=== PATIENT | female | born 1950 | race African-American/Black ===

== ENCOUNTER 2018-09-22 12:03 | Emergency (ER) | payer MEDICAID, OTHER ==
[~2018-09-22] VITALS: Ht 154.9 cm; Wt 122.8 kg
[~2018-09-22 12:03] MED LIST: ASPI-1158 MT; DOCU-138 PO; LORA10CA PO; LOSA1TAB40 PO; OMEP40CA34 PO; TRAM50TA3 PO
[2018-09-22] MEDS ORDERED: KETOROLAC 30MG/ML VIAL IM STA (17:45)
[2018-09-22 18:44] LABS: BASOPHILS % 1.3 % (0.0-2.0); CHLORIDE 109 mEq/L (98-107); HEMATOCRIT. 37.2 % (36.0-48.0); HEMOGLOBIN. 12.3 g/dL (12.0-16.0); LYMPHOCYTES % 46.2 % (20.0-50.0); MEAN CORPUSCULAR HEMOGLOBIN 32.2 pg (28.0-32.0); MEAN CORPUSCULAR VOLUME 97.1 fL (81.0-99.0); MEAN PLATELET VOLUME 8.9 fl (7.4-10.4); MONOCYTES % 8.7 % (2.0-8.0); NEUTROPHILS % 42.8 % (40.0-76.0); PLATELET 184 x1000/uL (130-400); RED BLOOD CELL COUNT 3.84 mill/uL (4.2-5.4); RED CELL DISTRIBUTION WIDTH 13.7 % (11.6-14.6)
[2018-09-22 19:46] LABS: CLARITY URINE CLEAR (CLEAR); COLOR URINE YELLOW (YELLOW); KETONES URINE NEGATIVE (NEGATIVE); LEUKOCYTE ESTERASE URINE NEGATIVE (NEGATIVE); NITRITE URINE NEGATIVE (NEGATIVE); OCCULT BLOOD URINE NEGATIVE (NEGATIVE); PROTEIN URINE NEGATIVE (NEGATIVE); SPECIFIC GRAVITY URINE 1.017 (1.005-1.030); UROBILINOGEN URINE 0.2 E.U./dL (0.2-1.0)
[2018-09-22 22:50] VITALS: BP 144/82
== END 2018-09-22 22:51 | disposition home or self-care (01) ==
LOC: ER 12:03
DX: M54.5 Low back pain (principal); R60.0 Localized edema; R35.0 Frequency of micturition; R39.15 Urgency of urination; I10 Essential (primary) hypertension
CPT/HCPCS: 36415; 71045; 80053; 81003; 83880; 84484; 85025; 93005; 93970; 96372; 99284; J1885

== ENCOUNTER 2018-11-17 08:49 | Emergency (ER) | payer OTHER ==
[~2018-11-17] VITALS: Ht 154.9 cm; Wt 124.0 kg
[2018-11-17 09:41] LABS: BASOPHILS % 0.4 % (0.0-2.0); EOSINOPHILS % 1.6 % (0.0-5.0); HEMATOCRIT. 34.7 % (36.0-48.0); HEMOGLOBIN. 11.8 g/dL (12.0-16.0); LYMPHOCYTES % 47.5 % (20.0-50.0); MEAN CORPUSCULAR HEMOGLOBIN 32.9 pg (28.0-32.0); MEAN PLATELET VOLUME 9.1 fl (7.4-10.4); MONOCYTES % 8.5 % (2.0-8.0); PLATELET 161 x1000/uL (130-400); RED BLOOD CELL COUNT 3.57 mill/uL (4.2-5.4); RED CELL DISTRIBUTION WIDTH 13.8 % (11.6-14.6)
[2018-11-17 09:47] LABS: CHLORIDE 110 mEq/L (98-107)
[2018-11-17 09:48] LABS: PROTHROMBIN TIME 10.4 sec (9.6-11.0)
[2018-11-17 10:40] VITALS: BP 125/64
== END 2018-11-17 10:57 | disposition home or self-care (01) ==
LOC: ER 08:49
DX: K92.2 Gastrointestinal hemorrhage, unspecified (principal); I25.10 Atherosclerotic heart disease of native coronary artery without angina pectoris; I10 Essential (primary) hypertension; Z91.041 Radiographic dye allergy status; Z79.82 Long term (current) use of aspirin; Z98.890 Other specified postprocedural states
CPT/HCPCS: 36415; 80053; 85025; 85610; 99283; Z7610

== ENCOUNTER 2019-05-04 10:20 | Emergency (ER) | payer OTHER ==
[~2019-05-04] VITALS: Ht 154.9 cm; Wt 126.0 kg
[2019-05-04 13:53] VITALS: BP 135/93
[2019-05-04] MEDS ORDERED: ACETAMINOPHEN 325MG TABLET PO STA (15:23)
[2019-05-04 16:49] LABS: BASOPHILS % 0.8 % (0.0-2.0); EOSINOPHILS % 1.1 % (0.0-5.0); HEMATOCRIT. 37.3 % (36.0-48.0); HEMOGLOBIN. 12.6 g/dL (12.0-16.0); LYMPHOCYTES % 47.4 % (20.0-50.0); MEAN CORPUSCULAR HEMOGLOBIN 33.1 pg (28.0-32.0); MEAN PLATELET VOLUME 9.4 fl (7.4-10.4); MONOCYTES % 7.3 % (2.0-8.0); NEUTROPHILS % 43.4 % (40.0-76.0); PLATELET 176 x1000/uL (130-400); RED CELL DISTRIBUTION WIDTH 13.8 % (11.6-14.6)
[2019-05-04 16:54] LABS: CHLORIDE 107 mEq/L (98-107)
== END 2019-05-04 22:52 | disposition left against medical advice (07) ==
LOC: ER 10:20
DX: R10.13 Epigastric pain (principal); Z87.19 Personal history of other diseases of the digestive system
CPT/HCPCS: 36415; 80053; 85025; 99283

== ENCOUNTER 2019-06-13 10:26 | Emergency (ER) | payer MEDICAID, OTHER ==
[~2019-06-13] VITALS: Ht 154.9 cm; Wt 122.7 kg
[~2019-06-13 10:26] MED LIST changes: +OMEP40CA12 PO; -OMEP40CA34 PO
[2019-06-13 13:31] LABS: CLARITY URINE CLOUDY (CLEAR); COLOR URINE DARK YELLOW (YELLOW); KETONES URINE 1+ (NEGATIVE); LEUKOCYTE ESTERASE URINE 1+ (NEGATIVE); NITRITE URINE NEGATIVE (NEGATIVE); OCCULT BLOOD URINE NEGATIVE (NEGATIVE); PROTEIN URINE 1+ (NEGATIVE); SPECIFIC GRAVITY URINE 1.032 (1.005-1.030)
[2019-06-13 14:02] LABS: BASOPHILS % 0.4 % (0.0-2.0); EOSINOPHILS % 0.5 % (0.0-5.0); HEMATOCRIT. 39.5 % (36.0-48.0); LYMPHOCYTES % 35.8 % (20.0-50.0); MEAN CORPUSCULAR HEMOGLOBIN 32.7 pg (28.0-32.0); MEAN CORPUSCULAR VOLUME 99.4 fL (81.0-99.0); MEAN PLATELET VOLUME 9.1 fl (7.4-10.4); MONOCYTES % 7.6 % (2.0-8.0); NEUTROPHILS % 55.7 % (40.0-76.0); PLATELET 179 x1000/uL (130-400); RED BLOOD CELL COUNT 3.97 mill/uL (4.2-5.4); RED CELL DISTRIBUTION WIDTH 13.5 % (11.6-14.6)
[2019-06-13 14:08] LABS: CHLORIDE 107 mEq/L (98-107)
[2019-06-13 14:12] LABS: PROTHROMBIN TIME 10.7 sec (9.6-11.0)
[2019-06-13] MEDS ORDERED: LOPERAMIDE HCL 2MG CAPSULE PO ONE (15:45)
[2019-06-13] MEDS ORDERED: ONDANSETRON HCL 4MG TABLET PO ONE (15:45)
[2019-06-13 16:39] VITALS: BP 155/91
== END 2019-06-13 16:40 | disposition home or self-care (01) ==
LOC: ER 10:26
DX: N39.0 Urinary tract infection, site not specified (principal); I10 Essential (primary) hypertension; I25.10 Atherosclerotic heart disease of native coronary artery without angina pectoris; Z88.8 Allergy status to other drugs, medicaments and biological substances; Z79.82 Long term (current) use of aspirin
CPT/HCPCS: 36415; 80053; 81003; 83690; 85025; 85610; 99283; Q0162

== ENCOUNTER 2019-10-07 11:28 | Emergency (ER) | payer MEDICAID, OTHER ==
[~2019-10-07] VITALS: Ht 154.9 cm; Wt 122.0 kg
[2019-10-07] MEDS ORDERED: HYDR-4134 PO (11:43)
[2019-10-07] MEDS ORDERED: FAMOTIDINE 20MG TABLET PO ONE (12:15)
[2019-10-07] MEDS ORDERED: DIPHENHYDRAMINE 25MG CAPSULE PO ONE (12:15)
[2019-10-07] MEDS ORDERED: DEXAMETHASONE 4MG TABLET PO ONE (12:15)
[2019-10-07 15:17] VITALS: BP 134/81
== END 2019-10-07 16:00 | disposition home or self-care (01) ==
LOC: ER 11:28
DX: R07.0 Pain in throat (principal); I10 Essential (primary) hypertension; Z91.041 Radiographic dye allergy status; Z79.82 Long term (current) use of aspirin
CPT/HCPCS: 87070; 99284; J8540; Q0163

== ENCOUNTER 2020-03-10 07:27 | Emergency (ER) | payer MEDICARE, MEDICAID ==
[~2020-03-10] VITALS: Ht 154.9 cm; Wt 129.0 kg
[~2020-03-10 07:27] MED LIST changes: +HYDR-4134 PO
[2020-03-10] MEDS ORDERED: ONDANSETRON HCL 4MG/2ML INJ IV STA (07:50)
[2020-03-10] MEDS ORDERED: KETOROLAC 30MG/ML VIAL IV STA (07:50)
[2020-03-10] MEDS ORDERED: SODIUM CHLORIDE 0.9% 1,000 ML IV ONE (08:00)
[2020-03-10] MEDS ORDERED: HYDRALAZINE HCL 50MG TABLET PO ONE (08:00)
[2020-03-10 08:13] LABS: BASOPHILS % 1.1 % (0.0-2.0); EOSINOPHILS % 0.7 % (0.0-5.0); HEMATOCRIT. 36.9 % (36.0-48.0); HEMOGLOBIN. 12.3 g/dL (12.0-16.0); LYMPHOCYTES % 33.3 % (20.0-50.0); MEAN CORPUSCULAR HEMOGLOBIN 32.4 pg (28.0-32.0); MEAN CORPUSCULAR VOLUME 97.3 fL (81.0-99.0); MEAN PLATELET VOLUME 9.7 fl (7.4-10.4); MONOCYTES % 9.3 % (2.0-8.0); NEUTROPHILS % 55.6 % (40.0-76.0); PLATELET 193 x1000/uL (130-400); RED CELL DISTRIBUTION WIDTH 13.6 % (11.6-14.6)
[2020-03-10 08:22] LABS: CHLORIDE 108 mEq/L (98-107)
[2020-03-10 08:35] LABS: CLARITY URINE CLEAR (CLEAR); COLOR URINE DARK YELLOW (YELLOW); KETONES URINE NEGATIVE (NEGATIVE); NITRITE URINE NEGATIVE (NEGATIVE); OCCULT BLOOD URINE NEGATIVE (NEGATIVE); PH URINE >=9.0 (4.5-8.0); PROTEIN URINE TRACE (NEGATIVE); SPECIFIC GRAVITY URINE 1.022 (1.005-1.030)
[2020-03-10 08:36] LABS: LEUKOCYTE ESTERASE URINE TRACE (NEGATIVE)
[2020-03-10 09:45] VITALS: BP 157/78
== END 2020-03-10 09:45 | disposition home or self-care (01) ==
LOC: ER 07:27
DX: R19.7 Diarrhea, unspecified (principal); I25.10 Atherosclerotic heart disease of native coronary artery without angina pectoris; I10 Essential (primary) hypertension; Z79.82 Long term (current) use of aspirin; Z91.041 Radiographic dye allergy status
CPT/HCPCS: 36415; 80053; 81003; 83690; 85025; 85610; 93005; 96361; 96374; 96375; 99285; J1885; J2405; J7030

== ENCOUNTER 2020-07-02 14:55 | Inpatient (IN) | payer MEDICARE, MEDICAID ==
[~2020-07-02] VITALS: Ht 162.6 cm; Wt 131.1 kg
[~2020-07-02 14:55] MED LIST changes: -ASPI-1158 MT; +ASPI-1406 MT; +FURO-151 MT; -LOSA1TAB40 PO; +LOSA50TA41 MT
[2020-07-02] MEDS ORDERED: ONDANSETRON HCL 4MG/2ML INJ IV ONE (16:00)
[2020-07-02 16:16] LABS: BASOPHILS % 1.2 % (0.0-2.0); EOSINOPHILS % 0.8 % (0.0-5.0); HEMATOCRIT. 35.5 % (36.0-48.0); HEMOGLOBIN. 11.9 g/dL (12.0-16.0); LYMPHOCYTES % 28.3 % (20.0-50.0); MEAN CORPUSCULAR HEMOGLOBIN 32.9 pg (28.0-32.0); MEAN CORPUSCULAR VOLUME 97.8 fL (81.0-99.0); MONOCYTES % 10.1 % (2.0-8.0); NEUTROPHILS % 59.6 % (40.0-76.0); PLATELET 181 x1000/uL (130-400); RED BLOOD CELL COUNT 3.63 mill/uL (4.2-5.4); RED CELL DISTRIBUTION WIDTH 13.5 % (11.6-14.6)
[2020-07-02 16:20] LABS: CHLORIDE 106 mEq/L (98-107)
[2020-07-02] MEDS ORDERED: SODIUM CHLORIDE 0.9% 500 ML IV ONE (17:45)
[2020-07-02 23:00] VITALS: BP 148/81
[2020-07-03] VITALS: BP 137/62
[2020-07-03] MEDS ORDERED: ACETAMINOPHEN 325MG TABLET PO PRN (00:30)
[2020-07-03] MEDS ORDERED: ONDANSETRON HCL 4MG/2ML INJ IV PRN (00:30)
[2020-07-03] MEDS ORDERED: CLONIDINE 0.1MG TABLET PO PRN (00:30)
[2020-07-03 04:00] VITALS: BP 123/62
[2020-07-03 08:00] VITALS: BP_SYST 114; BP_SYST 116; BP_SYST 117; BP_DIAS 64; BP_DIAS 68; BP_DIAS 75
[2020-07-03] MEDS: ENOXAPARIN 40MG/0.4ML SYR SUBCUT SCH ×2 (08:27→20:52)
[2020-07-03 08:48] LABS: BASOPHILS % 0.6 % (0.0-2.0); EOSINOPHILS % 0.7 % (0.0-5.0); HEMATOCRIT. 33.8 % (36.0-48.0); HEMOGLOBIN. 11.1 g/dL (12.0-16.0); LYMPHOCYTES % 43.9 % (20.0-50.0); MEAN CORPUSCULAR HEMOGLOBIN 32.2 pg (28.0-32.0); MEAN CORPUSCULAR VOLUME 97.9 fL (81.0-99.0); MEAN PLATELET VOLUME 9.4 fl (7.4-10.4); MONOCYTES % 9.4 % (2.0-8.0); NEUTROPHILS % 45.4 % (40.0-76.0); PLATELET 152 x1000/uL (130-400); RED BLOOD CELL COUNT 3.45 mill/uL (4.2-5.4); RED CELL DISTRIBUTION WIDTH 13.3 % (11.6-14.6)
[2020-07-03] MEDS ORDERED: ENOXAPARIN 40MG/0.4ML SYR SUBCUT SCH (09:00)
[2020-07-03] MEDS ORDERED: *PATIENT'S OWN MEDICATION STORAGE XX SCH (09:15)
[2020-07-03 09:21] LABS: CHLORIDE 108 mEq/L (98-107)
[2020-07-03 09:31] LABS: CREATINE KINASE 123 IU/L (26-192)
[2020-07-03 09:32] LABS: CREATINE KINASE MB FRACTION < 1.0 ng/mL (0.5-3.6)
[2020-07-03 12:00] VITALS: BP 116/76
[2020-07-03 16:00] VITALS: BP 100/57
[2020-07-03 16:17] LABS: CREATINE KINASE 121 IU/L (26-192); CREATINE KINASE MB FRACTION < 1.0 ng/mL (0.5-3.6)
[2020-07-03 20:00] VITALS: BP 124/68
[2020-07-03 23:21] LABS: CREATINE KINASE 107 IU/L (26-192)
[2020-07-03 23:22] LABS: CREATINE KINASE MB FRACTION < 1.0 ng/mL (0.5-3.6)
[2020-07-04] VITALS (7 sets, daily range): BP systolic 110–143; BP diastolic 56–91
[2020-07-04 06:21] LABS: BASOPHILS % 0.7 % (0.0-2.0); EOSINOPHILS % 1.3 % (0.0-5.0); HEMOGLOBIN. 10.8 g/dL (12.0-16.0); LYMPHOCYTES % 42.6 % (20.0-50.0); MEAN CORPUSCULAR HEMOGLOBIN 32.2 pg (28.0-32.0); MEAN CORPUSCULAR VOLUME 97.9 fL (81.0-99.0); MEAN PLATELET VOLUME 9.9 fl (7.4-10.4); NEUTROPHILS % 45.4 % (40.0-76.0); PLATELET 145 x1000/uL (130-400); RED BLOOD CELL COUNT 3.37 mill/uL (4.2-5.4); RED CELL DISTRIBUTION WIDTH 13.1 % (11.6-14.6)
[2020-07-04 06:27] LABS: CHLORIDE 108 mEq/L (98-107)
[2020-07-04] MEDS: LOSARTAN POTASSIUM 50 MG TABLET PO SCH ×3 (08:00→09:57)
[2020-07-04] MEDS: HYDRALAZINE HCL 25MG TABLET PO SCH ×3 (08:00→17:00)
[2020-07-04] MEDS: ENOXAPARIN 40MG/0.4ML SYR SUBCUT SCH (08:06)
[2020-07-04] MEDS ORDERED: DOCUSATE SODIUM 100MG CAPSULE PO SCH (09:00)
[2020-07-04] MEDS ORDERED: ASPIRIN 81MG EC TABLET PO SCH (09:00)
[2020-07-04] MEDS ORDERED: FUROSEMIDE 40MG TABLET PO SCH (09:00)
[2020-07-04] MEDS ORDERED: MECLIZINE 12.5MG TABLET PO PRN (13:00)
[2020-07-04 13:14] LABS: CLARITY URINE CLEAR (CLEAR); COLOR URINE YELLOW (YELLOW); KETONES URINE NEGATIVE (NEGATIVE); LEUKOCYTE ESTERASE URINE NEGATIVE (NEGATIVE); NITRITE URINE NEGATIVE (NEGATIVE); OCCULT BLOOD URINE NEGATIVE (NEGATIVE); PROTEIN URINE NEGATIVE (NEGATIVE); SPECIFIC GRAVITY URINE 1.005 (1.005-1.030); UROBILINOGEN URINE 0.2 E.U./dL (0.2-1.0)
== END 2020-07-04 18:15 | disposition home health service (06) | DRG 48 ==
LOC: ER 15:05 → 5WST 18:09 → EDBEDREQTM 18:15 → EDBEDREQ 18:15 → ENRESERV 21:39 → 5WST 07-03 01:16
PROVIDERS: ADMIT Internal Medicine; ATTEND Internal Medicine
DX: G90.8 Other disorders of autonomic nervous system (principal); I89.0 Lymphedema, not elsewhere classified; I27.20 Pulmonary hypertension, unspecified; D64.9 Anemia, unspecified; K29.70 Gastritis, unspecified, without bleeding; E66.01 Morbid (severe) obesity due to excess calories; I11.0 Hypertensive heart disease with heart failure; R74.01 Elevation of levels of liver transaminase levels; I50.32 Chronic diastolic (congestive) heart failure; R26.9 Unspecified abnormalities of gait and mobility; Z82.49 Family history of ischemic heart disease and other diseases of the circulatory system; Z88.8 Allergy status to other drugs, medicaments and biological substances; Z91.041 Radiographic dye allergy status; Z79.84 Long term (current) use of oral hypoglycemic drugs; Z79.899 Other long term (current) drug therapy; Z79.82 Long term (current) use of aspirin; Z68.42 Body mass index [BMI] 45.0-49.9, adult
CPT/HCPCS: 36415; 71045; 80048; 80053; 81003; 82550; 82553; 83880; 84484; 85025; 93005; 93306; 97162; 99285; J1650; J2405; J7040

== ENCOUNTER 2020-07-28 13:25 | Emergency (ER) | payer MEDICARE, MEDICAID ==
[~2020-07-28] VITALS: Ht 154.9 cm; Wt 127.0 kg
[2020-07-28] MEDS ORDERED: IPRATROPIUM BROMIDE (0.02%) 0.5MG/2.5ML NEB HHN STA (14:11)
[2020-07-28] MEDS ORDERED: METHYLPREDNISOLONE SOD SUCC 125 MG/2 ML VIAL IV STA (14:11)
[2020-07-28] MEDS ORDERED: ALBUTEROL (0.083%) 2.5MG/3ML NEB HHN STA (14:11)
[2020-07-28 14:32] LABS: CHLORIDE 108 mEq/L (98-107)
[2020-07-28 14:40] LABS: BASOPHILS % 0.5 % (0.0-2.0); EOSINOPHILS % 0.2 % (0.0-5.0); HEMATOCRIT. 35.3 % (36.0-48.0); HEMOGLOBIN. 11.3 g/dL (12.0-16.0); LYMPHOCYTES % 23.2 % (20.0-50.0); MEAN CORPUSCULAR HEMOGLOBIN 32.1 pg (28.0-32.0); MEAN CORPUSCULAR VOLUME 99.8 fL (81.0-99.0); MEAN PLATELET VOLUME 9.6 fl (7.4-10.4); MONOCYTES % 7.5 % (2.0-8.0); NEUTROPHILS % 68.6 % (40.0-76.0); PLATELET 175 x1000/uL (130-400); RED BLOOD CELL COUNT 3.53 mill/uL (4.2-5.4); RED CELL DISTRIBUTION WIDTH 13.7 % (11.6-14.6)
[2020-07-28] MEDS ORDERED: CEFTRIAXONE 1 G PREMIX 50 ML IV ONE (15:15)
[2020-07-28] MEDS ORDERED: AZITHROMYCIN 500 MG in DEXT 5% WATER 250 ML IV ONE (15:15)
[2020-07-28] MEDS ORDERED: DOXY100C2 MT (15:55)
[2020-07-28] MEDS ORDERED: P20 MT (15:55)
[2020-07-28] MEDS ORDERED: ALBU18HF2 IH (15:55)
[2020-07-28 18:10] VITALS: BP 130/80
== END 2020-07-28 18:00 | disposition home or self-care (01) ==
LOC: ER 13:25
DX: J18.9 Pneumonia, unspecified organism (principal); J45.909 Unspecified asthma, uncomplicated; D53.9 Nutritional anemia, unspecified; Z20.822 Contact with and (suspected) exposure to COVID-19; K21.9 Gastro-esophageal reflux disease without esophagitis; I10 Essential (primary) hypertension; Z79.82 Long term (current) use of aspirin; Z90.49 Acquired absence of other specified parts of digestive tract; Z87.891 Personal history of nicotine dependence
CPT/HCPCS: 36415; 71045; 80053; 83880; 84484; 85025; 87040; 93005; 94640; 96365; 96368; 96375; 99285; C9803; J0456; J0696; J2930; J7060; U0003; Z7610

== ENCOUNTER 2020-12-29 08:34 | Inpatient (IN) | payer MEDICARE, MEDICAID ==
[~2020-12-29] VITALS: Ht 154.9 cm; Wt 118.0 kg
[~2020-12-29 08:34] MED LIST changes: +ALBU18HF2 IH; +DOXY100C5 MT; -OMEP40CA12 PO; +OMEP40CA20 PO; +P20 MT
[2020-12-29] MEDS ORDERED: FUROSEMIDE 40MG/4ML VIAL IVP ONE (09:30)
[2020-12-29 09:42] LABS: BASOPHILS % 0.4 % (0.0-2.0); EOSINOPHILS % 0.7 % (0.0-5.0); HEMATOCRIT. 33.2 % (36.0-48.0); HEMOGLOBIN. 11.2 g/dL (12.0-16.0); MEAN CORPUSCULAR HEMOGLOBIN 32.3 pg (28.0-32.0); MEAN CORPUSCULAR VOLUME 95.6 fL (81.0-99.0); MEAN PLATELET VOLUME 7.9 fl (7.4-10.4); MONOCYTES % 10.3 % (2.0-8.0); NEUTROPHILS % 75.6 % (40.0-76.0); PLATELET 196 x1000/uL (130-400); RED BLOOD CELL COUNT 3.47 mill/uL (4.2-5.4); RED CELL DISTRIBUTION WIDTH 15.2 % (11.6-14.6)
[2020-12-29 09:48] LABS: CHLORIDE 105 mEq/L (98-107)
[2020-12-30] MEDS ORDERED: PANTOPRAZOLE 80 MG in SODIUM CHLORIDE 0.9% 100 ML IV SCH (06:00)
[2020-12-30] MEDS ORDERED: *PATIENT'S OWN MEDICATION STORAGE XX SCH (06:15)
[2020-12-30] MEDS ORDERED: ACET5SOL2 PO (06:25)
[2020-12-30] MEDS ORDERED: SIME125C MT (06:25)
[2020-12-30] MEDS ORDERED: FLUT1DIS3 INH (06:25)
[2020-12-30] MEDS ORDERED: BENZ5.1G (06:25)
[2020-12-30] MEDS ORDERED: PANT40TA51 PO (06:25)
[2020-12-30] MEDS ORDERED: B25 PO (06:25)
[2020-12-30] MEDS ORDERED: DICL100G31 TP (06:25)
[2020-12-30] MEDS ORDERED: SODI325T MT (06:25)
[2020-12-30 06:32] VITALS: BP 134/74
[2020-12-30 08:00] VITALS: BP 129/67
[2020-12-30] MEDS: PANTOPRAZOLE SODIUM 40 MG/VIAL IV SCH (08:23)
[2020-12-30 12:00] VITALS: BP 118/76
[2020-12-30] MEDS ORDERED: NALOXONE HCL 0.4MG/ML VIAL IV PRN (14:00)
[2020-12-30] MEDS: HYDROCODONE/ACETAMINOPHEN 10/325MG TABLET PO PRN (14:55)
[2020-12-30 16:00] VITALS: BP 118/76
[2020-12-30] MEDS: FUROSEMIDE 40MG/4ML VIAL IVP SCH (17:33)
[2020-12-30 20:00] VITALS: BP 109/67
[2020-12-30] MEDS: ENOXAPARIN 30MG/0.3ML SYR SUBCUT SCH (21:18)
[2020-12-30] MEDS ORDERED: IPRATROPIUM/ALBUTEROL 0.5-3(2.5)MG/3ML NEB HHN PRN (23:00)
[2020-12-31] VITALS: BP 123/84
[2020-12-31 04:00] VITALS: BP 133/66
[2020-12-31 08:00] VITALS: BP 128/74
[2020-12-31 08:41] LABS: BASOPHILS % 0.5 % (0.0-2.0); EOSINOPHILS % 1.5 % (0.0-5.0); HEMATOCRIT. 31.2 % (36.0-48.0); HEMOGLOBIN. 10.4 g/dL (12.0-16.0); LYMPHOCYTES % 22.2 % (20.0-50.0); MEAN CORPUSCULAR HEMOGLOBIN 32.6 pg (28.0-32.0); MEAN CORPUSCULAR VOLUME 97.7 fL (81.0-99.0); MEAN PLATELET VOLUME 8.2 fl (7.4-10.4); MONOCYTES % 10.2 % (2.0-8.0); NEUTROPHILS % 65.6 % (40.0-76.0); PLATELET 170 x1000/uL (130-400); RED BLOOD CELL COUNT 3.19 mill/uL (4.2-5.4); RED CELL DISTRIBUTION WIDTH 15.3 % (11.6-14.6)
[2020-12-31] MEDS: FUROSEMIDE 40MG/4ML VIAL IVP SCH ×2 (08:44→16:47)
[2020-12-31] MEDS: PANTOPRAZOLE SODIUM 40 MG/VIAL IV SCH (08:44)
[2020-12-31] MEDS: ENOXAPARIN 30MG/0.3ML SYR SUBCUT SCH ×2 (08:45→20:31)
[2020-12-31 08:46] LABS: CHLORIDE 108 mEq/L (98-107)
[2020-12-31 12:00] VITALS: BP 125/68
[2020-12-31] MEDS: HYDROCODONE/ACETAMINOPHEN 10/325MG TABLET PO PRN (15:20)
[2020-12-31 16:00] VITALS: BP 117/64
[2020-12-31] MEDS ORDERED: POTASSIUM CHLORIDE 20MEQ TABLET SR PO NR (18:45)
[2020-12-31 20:00] VITALS: BP 124/76
[2021-01-01] VITALS (7 sets, daily range): BP systolic 112–129; BP diastolic 64–77
[2021-01-01] MEDS: ONDANSETRON HCL 4MG/2ML INJ IV PRN ×2 (04:12→12:15)
[2021-01-01] MEDS: ENOXAPARIN 30MG/0.3ML SYR SUBCUT SCH ×2 (08:12→20:31)
[2021-01-01] MEDS: PANTOPRAZOLE SODIUM 40 MG/VIAL IV SCH (08:13)
[2021-01-01] MEDS: FUROSEMIDE 40MG/4ML VIAL IVP SCH ×2 (08:14→17:00)
[2021-01-01] MEDS: DOCUSATE SODIUM 100MG CAPSULE PO SCH (10:07)
[2021-01-01] MEDS: ACETAMINOPHEN 325MG TABLET PO PRN (10:08)
[2021-01-01 10:13] LABS: PARTIAL THROMBOPLASTIN TIME 25.5 sec (23.4-31.0); PROTHROMBIN TIME 11.2 sec (9.6-11.0)
[2021-01-01] MEDS: MORPHINE SULFATE 2 MG/ML CPJ (NOT FOR IM USE) IV PRN ×2 (18:54→23:42)
[2021-01-02 00:02] VITALS: BP 121/73
[2021-01-02 04:00] VITALS: BP 129/82
[2021-01-02] MEDS: ONDANSETRON HCL 4MG/2ML INJ IV PRN ×2 (04:25→16:05)
[2021-01-02 08:00] VITALS: BP 119/71
[2021-01-02] MEDS: ENOXAPARIN 30MG/0.3ML SYR SUBCUT SCH ×2 (09:00→13:52)
[2021-01-02 09:12] LABS: CHLORIDE 106 mEq/L (98-107)
[2021-01-02] MEDS: FUROSEMIDE 40MG/4ML VIAL IVP SCH ×2 (09:28→17:25)
[2021-01-02] MEDS: DOCUSATE SODIUM 100MG CAPSULE PO SCH (09:28)
[2021-01-02] MEDS: PANTOPRAZOLE SODIUM 40 MG/VIAL IV SCH (09:28)
[2021-01-02 12:00] VITALS: BP 122/79
[2021-01-02] MEDS ORDERED: POLYETHYLENE GLYCOL 3350 (17GM) 1 DOSE PACK PO NR ×2 (15:15→15:30)
[2021-01-02] MEDS: POLYETHYLENE GLYCOL 3350 (17GM) 1 DOSE PACK PO SCH (15:56)
[2021-01-02 16:00] VITALS: BP 119/72
[2021-01-02] MEDS: MORPHINE SULFATE 2 MG/ML CPJ (NOT FOR IM USE) IV PRN (16:06)
[2021-01-02 20:00] VITALS: BP 116/79
[2021-01-02] MEDS: FAMOTIDINE 20MG/2ML VIAL IV SCH (20:44)
[2021-01-03] VITALS: BP 130/70
[2021-01-03 04:00] VITALS: BP 110/73
[2021-01-03 08:00] VITALS: BP 126/77
[2021-01-03] MEDS: ENOXAPARIN 30MG/0.3ML SYR SUBCUT SCH (09:00)
[2021-01-03] MEDS ORDERED: POLYETHYLENE GLYCOL 3350 (17GM) 1 DOSE PACK PO SCH (09:00)
[2021-01-03] MEDS: FAMOTIDINE 20MG/2ML VIAL IV SCH ×2 (09:27→20:11)
[2021-01-03] MEDS: POLYETHYLENE GLYCOL 3350 (17GM) 1 DOSE PACK PO SCH (09:27)
[2021-01-03] MEDS: DOCUSATE SODIUM 100MG CAPSULE PO SCH (09:27)
[2021-01-03] MEDS: FUROSEMIDE 40MG/4ML VIAL IVP SCH ×2 (09:27→18:48)
[2021-01-03 12:00] VITALS: BP 117/74
[2021-01-03] MEDS: MORPHINE SULFATE 2 MG/ML CPJ (NOT FOR IM USE) IV PRN ×2 (13:00→20:12)
[2021-01-03] MEDS: ONDANSETRON HCL 4MG/2ML INJ IV PRN (13:00)
[2021-01-03 16:00] VITALS: BP 119/59
[2021-01-03 20:00] VITALS: BP 111/65
[2021-01-03] MEDS ORDERED: LACTULOSE 20G/30ML UDC PO PRN (21:45)
[2021-01-04] VITALS: BP 124/81
[2021-01-04] MEDS: ONDANSETRON HCL 4MG/2ML INJ IV PRN ×2 (01:11→17:48)
[2021-01-04] MEDS: MORPHINE SULFATE 2 MG/ML CPJ (NOT FOR IM USE) IV PRN ×2 (01:17→20:46)
[2021-01-04 04:00] VITALS: BP 110/66
[2021-01-04 08:00] VITALS: BP 126/70
[2021-01-04] MEDS: POLYETHYLENE GLYCOL 3350 (17GM) 1 DOSE PACK PO SCH ×2 (09:00→13:54)
[2021-01-04] MEDS: FUROSEMIDE 40MG/4ML VIAL IVP SCH ×3 (09:00→17:40)
[2021-01-04] MEDS: DOCUSATE SODIUM 100MG CAPSULE PO SCH (10:02)
[2021-01-04] MEDS: FAMOTIDINE 20MG/2ML VIAL IV SCH ×2 (10:02→20:44)
[2021-01-04] MEDS ORDERED: SODIUM BICARBONATE 4% (2.4MEQ) 5ML VIAL IV ONE (10:51)
[2021-01-04 12:00] VITALS: BP 128/68
[2021-01-04 16:00] VITALS: BP 106/76
[2021-01-04 20:00] VITALS: BP 120/84
[2021-01-04] MEDS: ACETAMINOPHEN 325MG TABLET PO PRN (20:45)
[2021-01-05 00:15] VITALS: BP 134/82
[2021-01-05 04:05] VITALS: BP 112/73
[2021-01-05 07:43] LABS: BASOPHILS % 0.3 % (0.0-2.0); EOSINOPHILS % 1.7 % (0.0-5.0); HEMATOCRIT. 38.7 % (36.0-48.0); HEMOGLOBIN. 12.8 g/dL (12.0-16.0); MEAN CORPUSCULAR HEMOGLOBIN 32.1 pg (28.0-32.0); MEAN CORPUSCULAR VOLUME 97.1 fL (81.0-99.0); MEAN PLATELET VOLUME 8.7 fl (7.4-10.4); MONOCYTES % 10.9 % (2.0-8.0); NEUTROPHILS % 60.1 % (40.0-76.0); PLATELET 168 x1000/uL (130-400); RED BLOOD CELL COUNT 3.98 mill/uL (4.2-5.4); RED CELL DISTRIBUTION WIDTH 15.4 % (11.6-14.6)
[2021-01-05 08:00] VITALS: BP 123/61
[2021-01-05 08:10] LABS: CHLORIDE 97 mEq/L (98-107)
[2021-01-05] MEDS: FAMOTIDINE 20MG/2ML VIAL IV SCH (10:05)
[2021-01-05] MEDS: FUROSEMIDE 40MG/4ML VIAL IVP SCH ×2 (10:05→16:33)
[2021-01-05] MEDS: DOCUSATE SODIUM 100MG CAPSULE PO SCH (10:05)
[2021-01-05] MEDS: POLYETHYLENE GLYCOL 3350 (17GM) 1 DOSE PACK PO SCH (10:09)
[2021-01-05] MEDS: MORPHINE SULFATE 2 MG/ML CPJ (NOT FOR IM USE) IV PRN ×2 (10:22→16:33)
[2021-01-05 12:00] VITALS: BP 106/72
[2021-01-05] MEDS ORDERED: POTASSIUM CHLORIDE 20MEQ TABLET SR PO NR (12:00)
[2021-01-05 16:00] VITALS: BP 133/75
[2021-01-05] MEDS: ONDANSETRON HCL 4MG/2ML INJ IV PRN (16:33)
[2021-01-05 18:57] VITALS: BP 133/75
== END 2021-01-05 19:25 | disposition home or self-care (01) | DRG 281 ==
LOC: ER 08:34 → MICUSO 14:53 → 8WST 12-30 04:02
PROVIDERS: ADMIT Internal Medicine; ATTEND Internal Medicine
PROC: 0W993ZZ Drainage of Right Pleural Cavity, Percutaneous Approach (ICD-10-PCS; principal; 2021-01-04)
DX: C22.1 Intrahepatic bile duct carcinoma (principal); I50.33 Acute on chronic diastolic (congestive) heart failure; J91.8 Pleural effusion in other conditions classified elsewhere; J94.8 Other specified pleural conditions; E44.1 Mild protein-calorie malnutrition; I11.0 Hypertensive heart disease with heart failure; R65.10 Systemic inflammatory response syndrome (SIRS) of non-infectious origin without acute organ dysfunction; K74.60 Unspecified cirrhosis of liver; D64.9 Anemia, unspecified; F17.210 Nicotine dependence, cigarettes, uncomplicated; I89.0 Lymphedema, not elsewhere classified; E87.6 Hypokalemia; Z20.822 Contact with and (suspected) exposure to COVID-19; K21.9 Gastro-esophageal reflux disease without esophagitis; Z87.01 Personal history of pneumonia (recurrent); Z85.05 Personal history of malignant neoplasm of liver; Z82.49 Family history of ischemic heart disease and other diseases of the circulatory system; Z90.49 Acquired absence of other specified parts of digestive tract; Z68.42 Body mass index [BMI] 45.0-49.9, adult; Z79.899 Other long term (current) drug therapy; Z88.8 Allergy status to other drugs, medicaments and biological substances; Z91.041 Radiographic dye allergy status; Z79.82 Long term (current) use of aspirin; Z79.52 Long term (current) use of systemic steroids
CPT/HCPCS: 32555; 36415; 71045; 80048; 80053; 83880; 84484; 85025; 87426; 93005; 93970; 97162; 97166; 97530; 99285; A6261; C9113; J1650; J1940; J2270; J2405; J3490

== ENCOUNTER 2021-01-23 01:00 | Inpatient (IN) | payer MEDICARE, MEDICAID ==
[~2021-01-23] VITALS: Ht 172.7 cm; Wt 104.3 kg
[~2021-01-23 01:00] MED LIST changes: +ACET5SOL2 PO; +B25 PO; +BENZ5.1G; +DICL100G31 TP; +FLUT1DIS3 INH; +PANT40TA51 PO; +SIME125C MT; +SODI325T MT
[2021-01-23] MEDS ORDERED: MORPHINE SULFATE 4 MG/ML CPJ (NOT FOR IM USE) IV STA (03:24)
[2021-01-23] MEDS ORDERED: METOCLOPRAMIDE HCL 10MG/2ML VIAL IV STA (03:24)
[2021-01-23] MEDS ORDERED: SODIUM CHLORIDE 0.9% 1,000 ML IV ONE (03:30)
[2021-01-23 03:45] LABS: BASOPHILS % 0.3 % (0.0-2.0); EOSINOPHILS % 2.3 % (0.0-5.0); HEMATOCRIT. 37.3 % (36.0-48.0); HEMOGLOBIN. 12.8 g/dL (12.0-16.0); LYMPHOCYTES % 28.2 % (20.0-50.0); MEAN CORPUSCULAR HEMOGLOBIN 32.9 pg (28.0-32.0); MEAN CORPUSCULAR VOLUME 95.7 fL (81.0-99.0); MEAN PLATELET VOLUME 9.6 fl (7.4-10.4); MONOCYTES % 10.5 % (2.0-8.0); NEUTROPHILS % 58.7 % (40.0-76.0); PLATELET 229 x1000/uL (130-400); RED CELL DISTRIBUTION WIDTH 15.1 % (11.6-14.6)
[2021-01-23 05:33] LABS: CHLORIDE 105 mEq/L (98-107)
[2021-01-23 09:00] VITALS: BP 134/80
[2021-01-23] MEDS ORDERED: PEPCID PO (09:56)
[2021-01-23] MEDS ORDERED: HYDR-4135 PO (09:58)
[2021-01-23] MEDS ORDERED: ONDA4TAB5 PO (09:58)
[2021-01-23 12:00] VITALS: BP 119/76
[2021-01-23] MEDS ORDERED: HYDRALAZINE 20MG/ML VIAL IV PRN (12:15)
[2021-01-23] MEDS ORDERED: CLONIDINE 0.1MG TABLET PO PRN (12:15)
[2021-01-23] MEDS ORDERED: MAGNESIUM/ALUMINUM HYDROXIDE/SIMETHICONE 30ML UDC PO PRN (12:15)
[2021-01-23] MEDS ORDERED: HYDROCODONE/ACETAMINOPHEN 5/325MG TABLET PO PRN (12:15)
[2021-01-23] MEDS ORDERED: GUAIFENESIN 200MG/10ML SUGAR FREE UDC PO PRN (12:15)
[2021-01-23] MEDS ORDERED: DIPHENHYDRAMINE 50MG/ML VIAL IV PRN (12:15)
[2021-01-23] MEDS ORDERED: LORAZEPAM 2MG/ML CPJ IV PRN (12:15)
[2021-01-23] MEDS ORDERED: IPRATROPIUM/ALBUTEROL 0.5-3(2.5)MG/3ML NEB HHN PRN (12:15)
[2021-01-23] MEDS ORDERED: HYDRALAZINE 10 MG in SODIUM CHLORIDE 0.9% 49.5 ML IV PRN (12:30)
[2021-01-23 16:00] VITALS: BP 135/74
[2021-01-23] MEDS ORDERED: NALOXONE HCL 0.4MG/ML VIAL IV PRN (17:15)
[2021-01-23] MEDS ORDERED: METHOCARBAMOL 500MG TABLET PO PRN (17:15)
[2021-01-23] MEDS ORDERED: POTASSIUM CHLORIDE 20MEQ TABLET SR PO NR (18:00)
[2021-01-23] MEDS: SODIUM CHLORIDE 0.9% INJ 3ML FLUSH IVF SCH ×2 (18:19→21:51)
[2021-01-23 20:00] VITALS: BP 127/89
[2021-01-24] VITALS: BP 130/85
[2021-01-24] MEDS: MORPHINE SULFATE 2 MG/ML CPJ (NOT FOR IM USE) IV PRN ×3 (00:44→16:05)
[2021-01-24 04:00] VITALS: BP 119/80
[2021-01-24] MEDS: SODIUM CHLORIDE 0.9% INJ 3ML FLUSH IVF SCH ×3 (05:05→21:03)
[2021-01-24 06:23] LABS: BASOPHILS % 0.8 % (0.0-2.0); EOSINOPHILS % 2.9 % (0.0-5.0); HEMOGLOBIN. 12.2 g/dL (12.0-16.0); LYMPHOCYTES % 33.9 % (20.0-50.0); MEAN CORPUSCULAR HEMOGLOBIN 32.1 pg (28.0-32.0); MEAN CORPUSCULAR VOLUME 96.9 fL (81.0-99.0); MEAN PLATELET VOLUME 9.1 fl (7.4-10.4); MONOCYTES % 10.7 % (2.0-8.0); NEUTROPHILS % 51.7 % (40.0-76.0); PLATELET 173 x1000/uL (130-400); RED BLOOD CELL COUNT 3.81 mill/uL (4.2-5.4); RED CELL DISTRIBUTION WIDTH 15.1 % (11.6-14.6)
[2021-01-24 06:51] LABS: CHLORIDE 106 mEq/L (98-107)
[2021-01-24 08:00] VITALS: BP 122/82
[2021-01-24] MEDS: ONDANSETRON HCL 4MG/2ML INJ IV PRN (08:06)
[2021-01-24 12:00] VITALS: BP 147/92
[2021-01-24] MEDS: FUROSEMIDE 40MG TABLET PO SCH (12:10)
[2021-01-24] MEDS: DOCUSATE SODIUM 100MG CAPSULE PO PRN (12:21)
[2021-01-24 15:54] VITALS: BP 124/89
[2021-01-24 20:00] VITALS: BP 134/86
[2021-01-24] MEDS: HYDRALAZINE HCL 50MG TABLET PO SCH (21:03)
[2021-01-24] MEDS ORDERED: KETOROLAC 15MG/ML VIAL IV PRN (22:15)
[2021-01-24] MEDS ORDERED: TRAMADOL 50MG TABLET PO PRN (22:15)
[2021-01-25] VITALS: BP 134/86
[2021-01-25] MEDS: ONDANSETRON HCL 4MG/2ML INJ IV PRN ×3 (00:21→17:02)
[2021-01-25 04:00] VITALS: BP 140/86
[2021-01-25] MEDS: SODIUM CHLORIDE 0.9% INJ 3ML FLUSH IVF SCH ×3 (05:01→21:05)
[2021-01-25 08:00] VITALS: BP 122/76
[2021-01-25] MEDS: FUROSEMIDE 40MG TABLET PO SCH (09:47)
[2021-01-25] MEDS: HYDRALAZINE HCL 50MG TABLET PO SCH ×2 (09:48→21:05)
[2021-01-25] MEDS: MORPHINE SULFATE 2 MG/ML CPJ (NOT FOR IM USE) IV PRN ×3 (09:49→23:11)
[2021-01-25 12:00] VITALS: BP 123/66
[2021-01-25 12:48] LABS: INR 1.1; PARTIAL THROMBOPLASTIN TIME 23.4 sec (23.4-31.0); PROTHROMBIN TIME 11.7 sec (9.6-11.0)
[2021-01-25] MEDS: DOCUSATE SODIUM 100MG CAPSULE PO PRN (13:08)
[2021-01-25] MEDS ORDERED: SODIUM BICARBONATE 4% (2.4MEQ) 5ML VIAL IV ONE (13:41)
[2021-01-25 16:00] VITALS: BP 121/70
[2021-01-25 20:00] VITALS: BP 113/58
[2021-01-26] VITALS (7 sets, daily range): BP systolic 111–129; BP diastolic 59–87
[2021-01-26] MEDS: MORPHINE SULFATE 2 MG/ML CPJ (NOT FOR IM USE) IV PRN ×3 (05:21→20:08)
[2021-01-26] MEDS: ONDANSETRON HCL 4MG/2ML INJ IV PRN ×3 (05:30→17:07)
[2021-01-26] MEDS: SODIUM CHLORIDE 0.9% INJ 3ML FLUSH IVF SCH ×3 (05:35→20:07)
[2021-01-26 07:29] LABS: BASOPHILS % 0.5 % (0.0-2.0); EOSINOPHILS % 1.9 % (0.0-5.0); HEMATOCRIT. 37.3 % (36.0-48.0); HEMOGLOBIN. 12.3 g/dL (12.0-16.0); LYMPHOCYTES % 20.8 % (20.0-50.0); MEAN CORPUSCULAR HEMOGLOBIN 32.6 pg (28.0-32.0); MEAN PLATELET VOLUME 8.7 fl (7.4-10.4); MONOCYTES % 10.9 % (2.0-8.0); NEUTROPHILS % 65.9 % (40.0-76.0); PLATELET 182 x1000/uL (130-400); RED BLOOD CELL COUNT 3.77 mill/uL (4.2-5.4); RED CELL DISTRIBUTION WIDTH 15.4 % (11.6-14.6)
[2021-01-26 07:39] LABS: CHLORIDE 106 mEq/L (98-107)
[2021-01-26] MEDS: HYDRALAZINE HCL 50MG TABLET PO SCH ×2 (09:17→20:07)
[2021-01-26] MEDS: FUROSEMIDE 40MG TABLET PO SCH (09:17)
[2021-01-26] MEDS: FAMOTIDINE 20MG/2ML VIAL IV SCH (13:44)
[2021-01-26] MEDS ORDERED: POTASSIUM CHLORIDE INJ 40 MEQ in DEXT 5% WATER 500 ML IV NR (16:00)
[2021-01-26] MEDS ORDERED: METOPROLOL TARTRATE 5MG/5ML VIAL IV NR (16:30)
[2021-01-26] MEDS: ENOXAPARIN 30MG/0.3ML SYR SUBCUT SCH (17:19)
[2021-01-26] MEDS ORDERED: HYDRALAZINE 20MG/ML VIAL IV PRN (18:00)
[2021-01-27] VITALS: BP 114/67
[2021-01-27] MEDS ORDERED: METOPROLOL TARTRATE 5MG/5ML VIAL IV SCH (03:00)
[2021-01-27 04:00] VITALS: BP 113/67
[2021-01-27] MEDS: ONDANSETRON HCL 4MG/2ML INJ IV PRN (05:11)
[2021-01-27] MEDS: MORPHINE SULFATE 2 MG/ML CPJ (NOT FOR IM USE) IV PRN ×2 (05:11→17:38)
[2021-01-27] MEDS: SODIUM CHLORIDE 0.9% INJ 3ML FLUSH IVF SCH ×3 (05:11→20:12)
[2021-01-27] MEDS: ENOXAPARIN 30MG/0.3ML SYR SUBCUT SCH ×2 (05:11→17:37)
[2021-01-27 06:26] LABS: BASOPHILS % 0.6 % (0.0-2.0); EOSINOPHILS % 1.3 % (0.0-5.0); HEMATOCRIT. 36.7 % (36.0-48.0); HEMOGLOBIN. 12.2 g/dL (12.0-16.0); LYMPHOCYTES % 20.2 % (20.0-50.0); MEAN CORPUSCULAR HEMOGLOBIN 32.7 pg (28.0-32.0); MEAN CORPUSCULAR VOLUME 98.2 fL (81.0-99.0); MEAN PLATELET VOLUME 9.8 fl (7.4-10.4); MONOCYTES % 11.3 % (2.0-8.0); NEUTROPHILS % 66.6 % (40.0-76.0); PLATELET 204 x1000/uL (130-400); RED BLOOD CELL COUNT 3.74 mill/uL (4.2-5.4); RED CELL DISTRIBUTION WIDTH 15.4 % (11.6-14.6)
[2021-01-27 06:28] LABS: CHLORIDE 102 mEq/L (98-107)
[2021-01-27 08:00] VITALS: BP 115/74
[2021-01-27] MEDS: FAMOTIDINE 20MG/2ML VIAL IV SCH (09:16)
[2021-01-27] MEDS: FUROSEMIDE 40MG TABLET PO SCH (09:16)
[2021-01-27] MEDS: HYDRALAZINE HCL 50MG TABLET PO SCH (09:17)
[2021-01-27 11:30] LABS: T4 FREE 1.7 ng/dL (0.76-1.46)
[2021-01-27] MEDS: DILTIAZEM HCL 60MG TABLET PO SCH ×3 (11:40→20:11)
[2021-01-27] MEDS: SODIUM CHLORIDE 0.9% 1,000 ML IV SCH (11:45)
[2021-01-27 12:00] VITALS: BP 118/67
[2021-01-27 16:00] VITALS: BP 103/72
[2021-01-27 16:45] LABS: CREATINE KINASE 30 IU/L (26-192)
[2021-01-27 16:46] LABS: CREATINE KINASE MB FRACTION 1.8 ng/mL (0.5-3.6)
[2021-01-27] MEDS: ACETAMINOPHEN 325MG TABLET PO PRN (17:38)
[2021-01-27 20:00] VITALS: BP 109/67
[2021-01-27 23:32] LABS: CREATINE KINASE 30 IU/L (26-192)
[2021-01-27 23:33] LABS: CREATINE KINASE MB FRACTION 2.3 ng/mL (0.5-3.6)
[2021-01-28] VITALS: BP 106/71
[2021-01-28] MEDS: MORPHINE SULFATE 2 MG/ML CPJ (NOT FOR IM USE) IV PRN ×4 (00:40→20:34)
[2021-01-28 04:00] VITALS: BP 107/55
[2021-01-28] MEDS: ENOXAPARIN 30MG/0.3ML SYR SUBCUT SCH ×2 (05:57→17:03)
[2021-01-28] MEDS: SODIUM CHLORIDE 0.9% INJ 3ML FLUSH IVF SCH ×3 (05:57→21:08)
[2021-01-28] MEDS: DILTIAZEM HCL 60MG TABLET PO SCH ×3 (05:57→21:08)
[2021-01-28] MEDS: SODIUM CHLORIDE 0.9% 1,000 ML IV SCH ×2 (06:01→21:08)
[2021-01-28 06:04] LABS: EOSINOPHILS % 1.6 % (0.0-5.0); HEMATOCRIT. 34.2 % (36.0-48.0); HEMOGLOBIN. 11.4 g/dL (12.0-16.0); MEAN CORPUSCULAR HEMOGLOBIN 32.6 pg (28.0-32.0); MEAN CORPUSCULAR VOLUME 97.8 fL (81.0-99.0); MEAN PLATELET VOLUME 9.3 fl (7.4-10.4); NEUTROPHILS % 62.4 % (40.0-76.0); PLATELET 215 x1000/uL (130-400); RED CELL DISTRIBUTION WIDTH 15.3 % (11.6-14.6)
[2021-01-28 06:11] LABS: CHLORIDE 102 mEq/L (98-107)
[2021-01-28 06:23] LABS: CREATINE KINASE 25 IU/L (26-192)
[2021-01-28 06:25] LABS: CREATINE KINASE MB FRACTION 1.3 ng/mL (0.5-3.6)
[2021-01-28] MEDS: FUROSEMIDE 40MG TABLET PO SCH (07:42)
[2021-01-28] MEDS: ONDANSETRON HCL 4MG/2ML INJ IV PRN ×3 (07:42→20:33)
[2021-01-28] MEDS: FAMOTIDINE 20MG/2ML VIAL IV SCH (07:43)
[2021-01-28 08:00] VITALS: BP 112/68
[2021-01-28 12:16] VITALS: BP 112/68
[2021-01-28 16:09] VITALS: BP 115/70
[2021-01-28 20:26] VITALS: BP 125/71
[2021-01-28] MEDS: DOCUSATE SODIUM 100MG CAPSULE PO PRN (21:08)
[2021-01-29 00:01] VITALS: BP 123/69
[2021-01-29] MEDS: ONDANSETRON HCL 4MG/2ML INJ IV PRN ×3 (02:35→17:12)
[2021-01-29] MEDS: MORPHINE SULFATE 2 MG/ML CPJ (NOT FOR IM USE) IV PRN ×4 (02:35→22:46)
[2021-01-29 04:00] VITALS: BP 115/67
[2021-01-29] MEDS: ENOXAPARIN 30MG/0.3ML SYR SUBCUT SCH ×2 (05:19→17:12)
[2021-01-29] MEDS: SODIUM CHLORIDE 0.9% INJ 3ML FLUSH IVF SCH ×3 (05:19→22:45)
[2021-01-29] MEDS: DILTIAZEM HCL 60MG TABLET PO SCH ×2 (05:19→13:58)
[2021-01-29 05:39] LABS: BASOPHILS % 0.6 % (0.0-2.0); EOSINOPHILS % 3.1 % (0.0-5.0); HEMATOCRIT. 32.8 % (36.0-48.0); LYMPHOCYTES % 20.3 % (20.0-50.0); MEAN CORPUSCULAR HEMOGLOBIN 32.6 pg (28.0-32.0); MEAN CORPUSCULAR VOLUME 97.6 fL (81.0-99.0); MEAN PLATELET VOLUME 9.2 fl (7.4-10.4); MONOCYTES % 13.8 % (2.0-8.0); NEUTROPHILS % 62.2 % (40.0-76.0); PLATELET 210 x1000/uL (130-400); RED BLOOD CELL COUNT 3.36 mill/uL (4.2-5.4); RED CELL DISTRIBUTION WIDTH 15.1 % (11.6-14.6)
[2021-01-29 06:16] LABS: CHLORIDE 102 mEq/L (98-107)
[2021-01-29 08:04] VITALS: BP 110/76
[2021-01-29] MEDS: FAMOTIDINE 20MG/2ML VIAL IV SCH (08:58)
[2021-01-29] MEDS: DOCUSATE SODIUM 100MG CAPSULE PO PRN (08:59)
[2021-01-29] MEDS: FUROSEMIDE 40MG TABLET PO SCH (08:59)
[2021-01-29] MEDS ORDERED: POTASSIUM CHLORIDE 20MEQ/PACKET PO NR (09:22)
[2021-01-29 12:00] VITALS: BP 104/74
[2021-01-29] MEDS: DILTIAZEM HCL 120MG CAPSULE CD 24HR PO SCH (14:30)
[2021-01-29 16:30] VITALS: BP 121/75
[2021-01-29 20:49] VITALS: BP 117/81
[2021-01-30 00:42] VITALS: BP 125/71
[2021-01-30 04:00] VITALS: BP 120/74
[2021-01-30] MEDS: ONDANSETRON HCL 4MG/2ML INJ IV PRN ×2 (05:01→16:50)
[2021-01-30] MEDS: ENOXAPARIN 30MG/0.3ML SYR SUBCUT SCH ×2 (05:02→16:50)
[2021-01-30] MEDS: SODIUM CHLORIDE 0.9% INJ 3ML FLUSH IVF SCH ×3 (05:02→22:00)
[2021-01-30 08:00] VITALS: BP 121/75
[2021-01-30] MEDS: DILTIAZEM HCL 120MG CAPSULE CD 24HR PO SCH (08:34)
[2021-01-30] MEDS: FUROSEMIDE 40MG TABLET PO SCH (08:34)
[2021-01-30] MEDS: FAMOTIDINE 20MG TABLET PO SCH ×2 (08:35→20:00)
[2021-01-30 12:00] VITALS: BP 122/74
[2021-01-30] MEDS: MORPHINE SULFATE 2 MG/ML CPJ (NOT FOR IM USE) IV PRN ×2 (12:22→19:55)
[2021-01-30 16:00] VITALS: BP 116/72
[2021-01-30 19:41] VITALS: BP 121/77
[2021-01-30] MEDS: DOCUSATE SODIUM 100MG CAPSULE PO PRN (20:00)
[2021-01-30] MEDS ORDERED: DILT180C51 MT (21:13)
[2021-01-31] VITALS: BP 133/79
[2021-01-31] MEDS: MORPHINE SULFATE 2 MG/ML CPJ (NOT FOR IM USE) IV PRN ×4 (02:20→21:46)
[2021-01-31 04:00] VITALS: BP 109/70
[2021-01-31] MEDS: SODIUM CHLORIDE 0.9% INJ 3ML FLUSH IVF SCH ×3 (06:31→21:47)
[2021-01-31] MEDS: ENOXAPARIN 30MG/0.3ML SYR SUBCUT SCH ×2 (06:31→19:27)
[2021-01-31 08:00] VITALS: BP 126/77
[2021-01-31] MEDS: DILTIAZEM HCL 120MG CAPSULE CD 24HR PO SCH (09:03)
[2021-01-31] MEDS: FUROSEMIDE 40MG TABLET PO SCH (09:03)
[2021-01-31] MEDS: FAMOTIDINE 20MG TABLET PO SCH ×2 (09:03→21:44)
[2021-01-31 12:00] VITALS: BP 113/75
[2021-01-31 16:00] VITALS: BP 149/66
[2021-01-31 20:00] VITALS: BP 114/77
[2021-01-31] MEDS: DOCUSATE SODIUM 100MG CAPSULE PO PRN (21:44)
[2021-01-31] MEDS: ONDANSETRON HCL 4MG/2ML INJ IV PRN (21:45)
[2021-02-01] VITALS: BP 122/70
[2021-02-01 04:00] VITALS: BP 107/63
[2021-02-01] MEDS: SODIUM CHLORIDE 0.9% INJ 3ML FLUSH IVF SCH ×3 (05:27→22:37)
[2021-02-01] MEDS: ENOXAPARIN 30MG/0.3ML SYR SUBCUT SCH ×2 (05:27→18:25)
[2021-02-01] MEDS: ONDANSETRON HCL 4MG/2ML INJ IV PRN (05:33)
[2021-02-01] MEDS: MORPHINE SULFATE 2 MG/ML CPJ (NOT FOR IM USE) IV PRN ×3 (05:44→19:16)
[2021-02-01] MEDS ORDERED: POTASSIUM CHLORIDE 20MEQ TABLET SR PO NR (08:30)
[2021-02-01] MEDS: DILTIAZEM HCL 120MG CAPSULE CD 24HR PO SCH (09:00)
[2021-02-01] MEDS: FUROSEMIDE 40MG TABLET PO SCH (09:27)
[2021-02-01] MEDS: FAMOTIDINE 20MG TABLET PO SCH ×2 (09:28→22:37)
[2021-02-01 12:00] VITALS: BP 117/68
[2021-02-01 12:19] LABS: BG BASE EXCESS 1.9 mmol/L (-2.0-2.0); BG CARBOXYHEMOGLOBIN 0.1 % (0.5-1.5); BG DEOXYHEMOGLOBIN 6.3 % (0.0-5.0); BG FRACTION INSPIRED OXYGEN 21; BG HCO3 ACT 25.4 mmol/L (22.0-26.0); BG METHEMOGLOBIN 0.8 % (0.0-1.5); BG OXYGEN SATURATION 93.6 % (92.0-98.5); BG OXYHEMOGLOBIN 92.8 % (94.0-97.0); BG PCO2 35.8 mmHg (35.0-45.0); BG PH 7.468 (7.350-7.450); BG PO2 68.1 mmHg (75.0-100.0); BG SAMPLE SITE RIGHT BRACHIAL; BG VENT MODE ROOM AIR
[2021-02-01 16:30] VITALS: BP 126/86
[2021-02-01 18:13] VITALS: BP 125/86
[2021-02-01] MEDS: ACETAMINOPHEN 325MG TABLET PO PRN (18:29)
[2021-02-01] MEDS ORDERED: NALOXONE HCL 0.4MG/ML VIAL IV PRN (18:45)
[2021-02-01 20:00] VITALS: BP 108/65
[2021-02-01] MEDS: DOCUSATE SODIUM 100MG CAPSULE PO PRN (22:37)
[2021-02-02] VITALS: BP 126/75
[2021-02-02] MEDS: MORPHINE SULFATE 2 MG/ML CPJ (NOT FOR IM USE) IV PRN ×2 (03:04→10:41)
[2021-02-02 04:00] VITALS: BP_SYST 118; BP_SYST 126; BP_DIAS 75
[2021-02-02] MEDS: ENOXAPARIN 30MG/0.3ML SYR SUBCUT SCH (06:12)
[2021-02-02] MEDS: ONDANSETRON HCL 4MG/2ML INJ IV PRN (06:13)
[2021-02-02] MEDS: SODIUM CHLORIDE 0.9% INJ 3ML FLUSH IVF SCH (06:13)
[2021-02-02 08:00] VITALS: BP 108/72
[2021-02-02] MEDS: DILTIAZEM HCL 120MG CAPSULE CD 24HR PO SCH (09:00)
[2021-02-02 10:36] VITALS: BP 107/71
[2021-02-02] MEDS: FUROSEMIDE 40MG TABLET PO SCH (10:39)
[2021-02-02] MEDS: FAMOTIDINE 20MG TABLET PO SCH (10:40)
[2021-02-02] MEDS ORDERED: POLYETHYLENE GLYCOL 3350 (17GM) 1 DOSE PACK PO SCH (11:00)
[2021-02-02 11:51] VITALS: BP 107/71
[2021-02-02 12:00] VITALS: BP 115/72
[2021-02-02 13:22] LABS: CHLORIDE 104 mEq/L (98-107)
== END 2021-02-02 13:27 | disposition home or self-care (01) | DRG 194 ==
LOC: ER 01:00 → 6EST 06:05 → ENRESERV 08:02 → 6WST 01-26 16:20
PROVIDERS: ADMIT Internal Medicine; ATTEND Internal Medicine
PROC: 0W993ZZ Drainage of Right Pleural Cavity, Percutaneous Approach (ICD-10-PCS; principal; 2021-01-25)
DX: I11.0 Hypertensive heart disease with heart failure (principal); E43 Unspecified severe protein-calorie malnutrition; J91.8 Pleural effusion in other conditions classified elsewhere; R18.8 Other ascites; C22.1 Intrahepatic bile duct carcinoma; E86.0 Dehydration; I47.1 Supraventricular tachycardia; D64.9 Anemia, unspecified; E66.9 Obesity, unspecified; G89.3 Neoplasm related pain (acute) (chronic); I50.33 Acute on chronic diastolic (congestive) heart failure; Z20.822 Contact with and (suspected) exposure to COVID-19; E78.5 Hyperlipidemia, unspecified; E87.6 Hypokalemia; Z87.891 Personal history of nicotine dependence; Z91.041 Radiographic dye allergy status; Z82.49 Family history of ischemic heart disease and other diseases of the circulatory system; Z68.35 Body mass index [BMI] 35.0-35.9, adult; Z88.8 Allergy status to other drugs, medicaments and biological substances; Z79.82 Long term (current) use of aspirin; Z79.899 Other long term (current) drug therapy
CPT/HCPCS: 32555; 36415; 36600; 71045; 76700; 78582; 80048; 80053; 80061; 82375; 82550; 82553; 82805; 83036; 83605; 83880; 84439; 84443; 84484; 85025; 85379; 87426; 93005; 93306; 93970; 97162; 97530; 99285; A9558; J1650; J1885; J2270; J2405; J2765; J3480; J3490; J7030; J7040; J7060